=== PATIENT | female | born 1990 | race Caucasian/White ===

== ENCOUNTER 2022-10-07 19:35 | Inpatient (IN) | payer OTHER, SELFPAY ==
[2022-10-07 22:31] VITALS: BMI 26.3
[2022-10-07 22:40] VITALS: BP 105/63; PULSE 68; RESP 18; TEMP 36.6; O2SAT 98
[2022-10-07] MEDS: 0.9% Normal Saline 1,000 ML 125 ML IV (22:43)
--- NOTE | 2022-10-07 23:00 | CON.PCM.GI_ITS ---
HPI Consult Data Date of Consult: 10/07/22 HPI Narrative Reason for Consultation: Choledocholithiasis HPI Narrative: RENATE TREVIZO, is a 31 F who presents?31 F who presents on transfer from [facility] with a diagnosis of choledocholithiasis.? She reportedly had a right upper quadrant ultrasound with choledocholithiasis and an associated dilated common bile duct with persistent cholelithiasis.? She, further, exhibited transaminitis and hyperbilirubinemia.? I was contacted and said that the patient could be transferred to our institution for therapeutic ERCP. She says that she has been having in the right upper quadrant intermittently associated with dark-colored urine for the last several months. Patient states that she started with pain over the weekend after eating.? Therefore she has not eaten much to this point.? She reports that she had this pain once before almost a year ago during the with her son who is now 7 months old.? She continues to breast-feed.? I was notified by nursing earlier today that patient exhibited some hypoglycemia but was asymptomatic. ? Patient apparently had a similar issue at outside facility and was placed on D5 IV fluids but this spiked her blood sugar.? Patient denies any prior awareness of this issue, but does confess that she has had some unexplained sweating lately. [facility] Medical History (Updated 10/08/22 @ 13:[address] Vasquez Medina MD) GERD (gastroesophageal reflux disease) Medical History no medical history Home Medications NK 10/07/22 [History Last Taken Unknown] Allergy/AdvReac Type Severity Reaction Status Date / Time No Known Allergies Allergy Verified 10/07/22 22:38 Social History Smoking Status: Never smoker ROS Review of Systems ROS Unobtainable: other Constitutional Constitutional: Denies fatigue, fever(s), poor appetite, weight gain or weight loss ENT HEENT: Denies mouth lesions Cardiovascular Cardiovascular: Denies abdominal bloating, abdominal edema or abdominal pain Respiratory/Chest Respiratory/Chest: Denies change in mental status, change in phlegm color, chest congestion or chest tightness Gastrointestinal Gastrointestinal: Denies belching, bloating, change in bowel habits, change in stool character, chewing difficulty, coffee ground emesis, constipation, cramping, diarrhea, dyspepsia, dysphagia, early satiety, excessive flatus, fecal incontinence, heartburn, hematemesis, hematochezia, hemorrhoids, loose stools, melena, nausea, odynophagia, rectal bleeding, tenesmus, vomiting or weight changes Genitourinary Genitourinary: Denies abdominal discomfort, burning urination or itching Musculoskeletal Musculoskeletal: Reports as per HPI; Denies muscle weakness or myalgias Integumentary Integumentary: Denies jaundice Neurologic Neurologic: Denies lack of coordination or weakness Psychiatric Psychiatric: Denies confusion, depression, memory loss, mood swings, paranoia or suicidal ideation Endocrine Endocrinology: Denies systems reviewed and no addt'l complaints, except as documented Hematologic/Lymphatic Hematologic/Lymphatic: Denies anemia, easy bleeding, easy bruising or lymphadenopathy Allergic/Immunologic Allergic/Immunologic: Denies systems reviewed and no addt'l complaints, except as documented Physical Exam Const alert, oriented x3 and no apparent distress General Appearance: cooperative Resp normal respiratory effort GI GI Narrative: No scars, nondistended. Soft and nontender to palpation x4 quadrants. Negative Andrade sign. Lab / Micro Data Result Diagrams: 10/08/22 04:10 10/08/22 04:10 Labs: Laboratory Results - last 24 hr 10/08/22 04:10: WBC 5.8, RBC 4.04 L, Hgb 13.2, Hct 38.3, MCV 94.8, MCH 32.7 H, MCHC 34.5, RDW Std Deviation 42.9, RDW Coeff of Travon 12.3, Plt Count 226, MPV 10.2, Immature Gran % (Auto) 0.300, Neut % (Auto) 62.1, Lymph % (Auto) 24.8, [place] % (Auto) 10.7 H, Eos % (Auto) 1.4, Baso % (Auto) 0.7, Absolute Neuts (auto) 3.6, Absolute Lymphs (auto) 1.44, Nucleated RBC % 0 10/08/22 04:10: Sodium 139, Potassium 4.3, Chloride 110 H, Carbon Dioxide 15.0 L , Anion Gap 14, BUN 9, Creatinine 0.77, Estim Creat Clear Calc 90.57, Est GFR (MDRD) Af Amer 112, Est GFR (MDRD) Non-Af 92, BUN/Creatinine Ratio 11.7, Glucose 52 L, Calcium 8.2 L, Phosphorus 3.4, Magnesium 1.6, Total Bilirubin 1.90 H, AST 543 H, ALT 1137 H, Alkaline Phosphatase 189 H, Total Protein 6.7, Albumin 3.1 L, Globulin 3.6, Albumin/Globulin Ratio 0.9 10/08/22 05:23: POC Glucose 48 L 10/08/22 06:37: POC Glucose 62 L 10/08/22 12:19: POC Glucose 55 L 10/08/22 14:50: POC Glucose 69 L 10/08/22 17:17: POC Glucose 59 L Radiology Impression Endo Retro Cholangiopancreatogram 10/08/22 16:40 IMPRESSION: Fluoroscopy provided during an ERCP. Electronically Signed: Pavan Davenport DO at 17:41 EST Reading Location ID and State: [facility] / [place] Tel [phone], Service support , Assessment & Plan Assessment/Plan (1) Choledocholithiasis: PLAN: She will undergo therapeutic and diagnostic ERCP. She was explained alternatives, risk, benefits include not withstanding bleeding, infection, sepsis, perforation, and post ERCP pancreatitis. She will have an ASA of 1. Continue n.p.o. and IV antibiotics along with IV fluids. Charges/Coding Visit Charges Inpatient E&M: 77286 Init Hosp L2
[2022-10-07] MEDS: Acetaminophen 500 MG Tablet PO (23:32)
--- NOTE | 2022-10-07 23:41 | NURSING ---
PT requesting breast pump. pt states she is her 7 month old child. A double breast pump was given; pt and support person educated on pump use, breast milk collection, and cleaning instructions. pt verbalized understanding. WP phone number written on pts white board and encouraged to call if she has questions
[2022-10-08 04:22] LABS: Absolute Lymphocyte Count 1.44 X10^3/uL (0.83-4.51); Absolute Neutrophil Count 3.6 X10^3/uL (2.0-7.7); Basophil# 0.04 X10^3/uL; Basophil% 0.7 % (0-1); Eosinophil# 0.08 X10^3/uL; Eosinophils% 1.4 % (0-5); Hematocrit 38.3 % (37-47); Hemoglobin 13.2 g/dL (12.0-15.0); Lymphocyte # 1.44 X10^3/ul (0.83-4.51); Lymphocyte % 24.8 % (19-41); Mean Corp Hgb Conc 34.5 g/dL (32-36); Mean Corpuscular Hgb 32.7 pg (27.0-32.0); Mean Corpuscular Volume 94.8 fL (81-99); Mean Platelet Vol. 10.2 fl (6.2-12.0); Monocyte# 0.62 X10^3/uL; Monocyte% 10.7 % (0-10); NRBC Flagged by Analyzer 0 % (0-5); Neutrophil # 3.61 X10^3/uL (2.7-7.7); Neutrophil % 62.1 % (47-70); Platelet Count 226 K/mm3 (150-450); RBC Distribution Width CV 12.3 % (11.6-14.6); RBC Distribution Width SD 42.9 fl (35.1-43.9); Red Blood Count 4.04 M/mm3 (4.2-5.4); White Blood Count 5.8 K/mm3 (4.4-11.0)
[2022-10-08 04:40] VITALS: BP 111/56; PULSE 66; RESP 14; TEMP 36.6; O2SAT 100
[2022-10-08 04:58] LABS: ALB/GLOB Ratio 0.9 RATIO (0.9-2.4); AST(SGOT) 543 U/L (15-37); Alanine Aminotransfer ALT/SGPT 1137 U/L (13-56); Albumin, Serum 3.1 g/dL (3.2-5.0); Alkaline Phosphatase 189 U/L (45-117); Anion Gap 14 (5-15); BUN 9 mg/dL (7-18); BUN/Creat Ratio 11.7 RATIO (10-20); Calcium,Total 8.2 mg/dL (8.5-10.1); Chloride 110 mmol/L (98-107); Creatinine, Serum 0.77 mg/dL (0.55-1.02); EST Glomerular Filtration Rate 92 mL/min (>60); Est Glom Filt Rate - Afr Amer 112 mL/min (>60); Estimated Creatinine Clearance 90.57 ml/min; Globulin 3.6 g/dL (2.2-4.2); Glucose 52 mg/dL (74-106); Magnesium 1.6 mg/dL (1.6-2.6); Phosphorus 3.4 mg/dL (2.5-4.9); Potassium 4.3 mmol/L (3.5-5.1); Protein, Total 6.7 g/dL (6.4-8.2); Sodium Level 139 mmol/L (136-145)
[2022-10-08 05:46] LABS: Bedside Glucose 48 mg/dL (74-106)
[2022-10-08] MEDS: 0.9% Normal Saline 1,000 ML 125 ML IV (06:02)
[2022-10-08 07:00] LABS: Bedside Glucose 62 mg/dL (74-106)
[2022-10-08 08:14] VITALS: BP 106/63; PULSE 64; RESP 16; TEMP 36.7; O2SAT 99
[2022-10-08] MEDS: Dextrose 5%/0.9% NaCl 1,000 ML 75 ML IV (08:19)
--- NOTE | 2022-10-08 10:13 | CASEMGMT ---
DREA BARBER Assessment: Face to Face with pt for initial transition planning/care coordination assessment. RN SUNIL introduced self and role at [facility], pt voices understanding and consents to assessment. Pt is A/O x4 and answers all questions appropriately at this time. Pt at bedside. Care providers, pharmacy, and demographics verified/updated. Admitting Dx: choledocholithiasis PCP:Morenita Specialists:Eunice Pina from 's office Preferred Pharmacy: [facility] Insurance: [facility] Prescription Benefit: no LNOK: Gui Hayward, father; River Hayward, Living Arrangements: Pt lives with and 4 children in a two story house with 2 steps to enter. Pt reports she is I in ADL's and denies concerns at home. Transportation: Pt hires drivers for transportation. DME/HHC/SNF: Pt denies having any DME in the home, previous HHC or SNF stays. Pt states no concerns with going home at time of dc. Pt states no further concerns/needs. CM to follow. Advised pt to ask CM if any further question/concerns/needs arise, voices understanding. Pt Goal: Home Plan: Home
[2022-10-08 12:45] LABS: Bedside Glucose 55 mg/dL (74-106)
--- NOTE | 2022-10-08 13:13 | PCM.HP.STD ---
HPI - General General Date of Admission: 10/07/22 Date of Service: 10/08/22 Chief Complaint: Choledocholithiasis HPI Narrative RENATE TREVIZO, is a 31 F who presents [facility] on transfer from [facility] with a diagnosis of choledocholithiasis. She reportedly had a right upper quadrant ultrasound with choledocholithiasis and an associated dilated common bile duct with persistent cholelithiasis. She, further, exhibited transaminitis and hyperbilirubinemia. Gastroenterology was contacted at our hospital and committed to treating the patient. I was then notified of potential transfer and accepted the patient for primary admission. Patient states that she started with pain over the weekend after eating. Therefore she has not eaten much to this point. She reports that she had this pain once before almost a year ago during the with her son who is now 7 months old. She continues to breast-feed. I was notified by nursing earlier today that patient exhibited some hypoglycemia but was asymptomatic. Patient apparently had a similar issue at outside facility and was placed on D5 IV fluids but this spiked her blood sugar. Patient denies any prior awareness of this issue, but does confess that she has had some unexplained sweating lately. [facility] Medical History (Updated 10/08/22 @ 13:[address] Vasquez Medina MD) GERD (gastroesophageal reflux disease) Medical History no medical history Home Medications NK 10/07/22 [History Last Taken Unknown] Allergy/AdvReac Type Severity Reaction Status Date / Time No Known Allergies Allergy Verified 10/07/22 22:38 Social History Smoking Status: Never smoker Vital Signs Vital Signs Vital Signs: 10/07/22 22:40 10/07/22 22:28 10/08/22 04:40 Temperature 97.9 F 97.9 F Temperature Source Oral Oral Pulse Rate 68 66 Respiratory Rate 18 14 Respiratory Effort Normal Respiratory Depth Normal Respiratory Pattern Normal Blood Pressure 105/63 111/56 L Blood Pressure Mean 77 74 Blood Pressure Source Monitor Monitor Blood Pressure Position Semi-Fowlers Semi-Fowlers Blood Pressure Location Right Arm Right Arm Pulse Ox 98 100 Oxygen Delivery Method Room Air Room Air Room Air 10/08/22 08:14 Temperature 98.0 F Temperature Source Oral Pulse Rate 64 Respiratory Rate 16 Respiratory Effort Respiratory Depth Respiratory Pattern Blood Pressure 106/63 Blood Pressure Mean 77 Blood Pressure Source Monitor Blood Pressure Position Semi-Fowlers Blood Pressure Location Right Arm Pulse Ox 99 Oxygen Delivery Method Room Air Weight Weight: 153 lb 3.54 oz Body Mass Index (BMI) 26.3 Physical Exam Const alert, oriented x3 and no apparent distress General Appearance: cooperative Resp normal respiratory effort GI GI Narrative: No scars, nondistended. Soft and nontender to palpation x4 quadrants. Negative Andrade sign. Results Lab / Micro Data Result Diagrams: 10/08/22 04:10 10/08/22 04:10 Labs: Laboratory Results - last 24 hr 10/08/22 04:10: WBC 5.8, RBC 4.04 L, Hgb 13.2, Hct 38.3, MCV 94.8, MCH 32.7 H, MCHC 34.5, RDW Std Deviation 42.9, RDW Coeff of Travon 12.3, Plt Count 226, MPV 10.2, Immature Gran % (Auto) 0.300, Neut % (Auto) 62.1, Lymph % (Auto) 24.8, [place] % (Auto) 10.7 H, Eos % (Auto) 1.4, Baso % (Auto) 0.7, Absolute Neuts (auto) 3.6, Absolute Lymphs (auto) 1.44, Nucleated RBC % 0 10/08/22 04:10: Sodium 139, Potassium 4.3, Chloride 110 H, Carbon Dioxide 15.0 L, Anion Gap 14, BUN 9, Creatinine 0.77, Estim Creat Clear Calc 90.57, Est GFR (MDRD) Af Amer 112, Est GFR (MDRD) Non-Af 92, BUN/Creatinine Ratio 11.7, Glucose 52 L, Calcium 8.2 L, Phosphorus 3.4, Magnesium 1.6, Total Bilirubin 1.90 H, AST 543 H, ALT 1137 H, Alkaline Phosphatase 189 H, Total Protein 6.7, Albumin 3.1 L, Globulin 3.6, Albumin/Globulin Ratio 0.9 10/08/22 05:23: POC Glucose 48 L 10/08/22 06:37: POC Glucose 62 L 10/08/22 12:19: POC Glucose 55 L Assessment & Plan Assessment/Plan (1) Choledocholithiasis: PLAN: Patient is a 31-year-old female who presents for treatment of choledocholithiasis diagnosed at an outside facility. Patient's laboratory certainly accord at this diagnosis, but I have not been yet able to see outside ultrasound imaging. Laboratories repeated here are also concordant with this diagnosis. Fortunately, by exam, patient does not appear to have concurrent cholecystitis. Gastroenterology has been formally consulted for ERCP. I discussed with patient that we will plan for laparoscopic cholecystectomy following ERCP?likely tomorrow. The procedure was described in detail and all questions were taken from her and her . Neuro: As needed Dilaudid, as needed Pulm/CV: No current issues FEN/GI: Daily laboratories, n.p.o. in anticipation of procedure, trend abdominal exam : No current issues Heme/ID: Trend CBC, empiric Zosyn coverage Endo: Bedside glucose checks, D5 infusion rate increased to 100 mL/h given persistent, asymptomatic hypoglycemia Proph: SCDs, patient encouraged Dispo: Continue inpatient care (2) Hypoglycemia: PLAN: Patient with asymptomatic hypoglycemia ranging in blood sugar from 40s to 50s while NPO. Slowly titrating up rate of D5 NS to help with this issue. Likely owing to concurrent breast-feeding and caloric output. Will monitor closely once patient is able to return to a diet. Charges/Coding Visit Charges Inpatient E&M: 40920 Init Hosp L2
--- NOTE | 2022-10-08 13:32 | NURSING ---
MEDICAL RECORDS FROM [facility] SENT TO MEDICAL RECORDS TO BE SCANNED
--- NOTE | 2022-10-08 14:53 | NURSING ---
Called to AC to report BGT issues/treatments, and that pt has been pumping periodically.
[2022-10-08 15:11] LABS: Bedside Glucose 69 mg/dL (74-106)
--- NOTE | 2022-10-08 16:40 | RAD_ITS ---
CLINICAL HISTORY: Female, 31 years old. ERCP. PROCEDURE: ERCP. FLUOROSCOPY TIME (if supplied): Not provided. TECHNIQUE: Fluoroscopic guidance was provided during an ERCP. 9 procedure images were presented for interpretation The initial image demonstrates an endoscope in the duodenum. There is cannulization of the CBD with injection of contrast. No evidence of filling defect stricture or dilatation. Balloon sweeping of this CBD was performed. No filling defect is seen on the final image. Please refer to the operative report for further details. RAD/ERCP Biliary/Pancreas IMPRESSION: Fluoroscopy provided during an ERCP. Electronically Signed: Pavan Davenport DO at 17:41 EST ,
--- NOTE | 2022-10-08 17:06 | OP.ERCP_ITS ---
Patient Name: Katherine Hayward Procedure Date: 10/08/2022 4:24 PM Date of : 1990 Age: 31 Procedure: ERCP Indications: Common bile duct stone(s) Providers: Narendra Mohamud DO Medicines: General Anesthesia Patient Profile: This is a 31 year old female. Refer to note in patient chart for documentation of history and physical. Patient has symptoms of acute right upper quadrant abdominal pain and acute jaundice. Complications: No immediate complications. Procedure: Pre-Anesthesia Assessment: - Prior to the procedure, a History and Physical was performed, and patient medications and allergies were reviewed. The patient is competent. The risks and benefits of the procedure and the sedation options and risks were discussed with the patient. All questions were answered and informed consent was obtained. Patient identification and proposed procedure were verified in the pre-procedure area. Mental Status Examination: alert and oriented. Airway Examination: normal oropharyngeal airway and neck mobility. Respiratory Examination: clear to auscultation. CV Examination: normal. Prophylactic Antibiotics: The patient does not require prophylactic antibiotics. Prior Anticoagulants: The patient has taken no previous anticoagulant or antiplatelet agents. ASA Grade Assessment: II - A patient with mild systemic disease. After reviewing the risks and benefits, the patient was deemed in satisfactory condition to undergo the procedure. The anesthesia plan was to use general anesthesia. Immediately prior to administration of medications, the patient was re-assessed for adequacy to receive sedatives. The heart rate, respiratory rate, oxygen saturations, blood pressure, adequacy of pulmonary ventilation, and response to care were monitored throughout the procedure. The physical status of the patient was re-assessed after the procedure. After obtaining informed consent, the scope was passed under direct vision. Throughout the procedure, the patient's blood pressure, pulse, and oxygen saturations were monitored continuously. The Duodenoscope was introduced through the mouth, and advanced to the duodenum and used for direct visualization of the bile duct. The ERCP was accomplished without difficulty. The patient tolerated the procedure well. Scope In: 4:40:02 PM Scope Out: 4:53:07 PM Total Procedure Duration Time 0 hours 13 minutes 5 seconds Findings: The business risk analyst film was normal. The esophagus was successfully intubated under direct vision. The scope was advanced to a normal major papilla in the descending duodenum without detailed examination of the pharynx, larynx and associated structures, and upper GI tract. The upper GI tract was grossly normal. The upper GI tract was traversed under direct vision without detailed examination. The major papilla was normal. The major papilla was normal. The minor papilla was not found. The bile duct was deeply cannulated. Contrast was injected. I personally interpreted the bile duct images. There was brisk flow of contrast through the ducts. Image quality was excellent. Contrast extended to the entire biliary tree. Opacification of the entire biliary tree except for the cystic duct and gallbladder and lower third of the main bile duct was successful. The maximum diameter of the ducts was 8 mm. The lower third of the main bile duct contained one stone, which was 6 mm in diameter. The main bile duct was moderately dilated, with a stone causing an obstruction. The largest diameter was 9 mm. A straight Roadrunner wire was passed into the biliary tree. A 5 mm biliary sphincterotomy was made with a traction (standard) sphincterotome using ERBE electrocautery. There was no post-sphincterotomy bleeding. The biliary tree was swept with a 15 mm balloon starting at the bifurcation. Sludge was swept from the duct. All stones were removed. The lower third of the main bile duct was successfully dilated with a 6-7-8 mm balloon (to a maximum balloon size of 8 mm) dilator. One 10 Fr by 5 cm stent was placed 5 cm into the common bile duct. Bile flowed through the stent. The stent was in good position. Impression: - The major papilla appeared normal. - The entire main bile duct was moderately dilated, with a stone causing an obstruction. - Choledocholithiasis was found. Complete removal was accomplished by biliary sphincterotomy and balloon extraction. - A biliary sphincterotomy was performed. - The biliary tree was swept. - The lower third of the main bile duct was successfully dilated. - One stent was placed into the common bile duct. Procedure Code(s): --- Professional --- 35648, Endoscopic retrograde cholangiopancreatography (ERCP); with placement of endoscopic stent into biliary or pancreatic duct, including pre- and post-dilation and guide wire passage, when performed, including sphincterotomy, when performed, each stent 87844, Endoscopic retrograde cholangiopancreatography (ERCP); with removal of calculi/debris from biliary/pancreatic duct(s) 80091, 26, Endoscopic catheterization of the biliary ductal system, radiological supervision and interpretation CPT copyright 2017 [employer]. All rights reserved. The codes documented in this report are preliminary and upon color checker roving or yarn review may be revised to meet current compliance requirements. Narendra Mohamud DO 10/08/2022 5:06:08 PM This report has been signed electronically. Number of Addenda: 0 Note Initiated On: 10/08/2022 4:24 PM
--- NOTE | 2022-10-08 17:07 | OP.CCLET_ITS ---
10/08/2022 Conner Spaulding [address] [place] [address] Re : ERCP procedure for Katherine Hayward Dear Dr. Spaulding This procedure was performed on September. My impressions and recommendations are as follows: Impressions : - The major papilla appeared normal. - The entire main bile duct was moderately dilated, with a stone causing an obstruction. - Choledocholithiasis was found. Complete removal was accomplished by biliary sphincterotomy and balloon extraction. - A biliary sphincterotomy was performed. - The biliary tree was swept. - The lower third of the main bile duct was successfully dilated. - One stent was placed into the common bile duct. Recommendations : My findings are described in the full procedure note, which is enclosed. If I can be of further assistance, please feel free to contact me at . Sincerely, Narendra Mohamud, DO 10/08/2022 5:06:08 PM This report has been signed electronically.
[2022-10-08 17:16] VITALS: BP 106/63; BP 114/72; PULSE 82; RESP 16; TEMP 36.3; O2SAT 100
[2022-10-08 17:30] VITALS: BP 103/63; BP 106/63; PULSE 83; RESP 16; TEMP 36.7; O2SAT 100
[2022-10-08 17:36] LABS: Bedside Glucose 59 mg/dL (74-106)
[2022-10-08 18:02] VITALS: BP 114/73; PULSE 52; RESP 16; TEMP 36.7; O2SAT 99
[2022-10-08 21:11] VITALS: BP 116/73; PULSE 63; RESP 18; TEMP 36.5; O2SAT 98
[2022-10-08] MEDS: Dextrose 5%/0.9% NaCl 1,000 ML 100 ML IV (21:50)
[2022-10-08 23:36] LABS: Bedside Glucose 124 mg/dL (74-106)
[2022-10-09] VITALS (13 sets, daily range): BP systolic 105–128; BP diastolic 61–82; PULSE 56–107; RESP 12–18; TEMP 36.4–37.2; O2SAT 18–100
--- NOTE | 2022-10-09 | GALL_PTH ---
PATIENT: RENATE TREVIZO LOC: MS2 U#:[id number] AGE/SX: 31/F ROOM: [facility] RE10/07/[address]: Dr. Vasquez Medina MD : 1990 BED: 1 DIS: 10/10/2022 SPEC #: [id number] RECD: 10/09/22 16:57 STATUS: ODALIS TIDWELL #: [id number] ANAHI: 10/09/22 00:[address]: Vasquez Medina DEPT: SURGICAL PATHOLOGY RECD BY: Julio Rodríguez ENTERED: 10/12/22 11:23 SP TYPE: VIN WINN DR: MD Dr. Narendra Wilhelm DO Tissues: Gallbladder, NOS Procedures: Surgery Specimen Level III HEADER OPERATION: Laparoscopic cholecystectomy with IOC PRE-OP DIAGNOSIS: Choledocholithiasis TISSUE SUBMITTED: Gallbladder MICROSCOPIC DIAGNOSIS Gallbladder, cholecystectomy: Chronic cholecystitis and cholelithiasis. AM:kristyn 10/13/2022 MICROSCOPIC DESCRIPTION Slides are reviewed. GROSS DESCRIPTION Received is one container labeled with the patient's name and designated gallbladder. The specimen consists of a gallbladder measuring 6.5 cm in length and up to 2.5 cm in diameter. The external surface is pink-kaiser, smooth and glistening for the most part. Focally it is granular, hemorrhagic and contains cautery artifact. The gallbladder contains green-yellow thick mucoid bile and one irregular brown stone measuring 0.4 cm in greatest dimension. The mucosa is bile-stained and without any mass lesions. The gallbladder wall measures up to 0.5 cm in thickness. School Health Aide sections from the gallbladder and the cystic duct are submitted in one cassette. / SJ:kristyn 10/12/2022 TC:3 CPT: 72577
[2022-10-09 02:09] LABS: Internal QC Validated? YES +Cl - CLEAR BKGD; Pregnancy, Urine Negative Negative
[2022-10-09] MEDS: Dextrose 5%/0.9% NaCl 1,000 ML 100 ML IV ×2 (04:29→18:40)
[2022-10-09 05:16] LABS: Bedside Glucose 186 mg/dL (74-106)
--- NOTE | 2022-10-09 05:30 | EKG12_ITS ---
Test Reason : AM EKG Blood Pressure : / mmHG Vent. Rate : 056 BPM Atrial Rate : 056 BPM P-R Int : 126 ms QRS Dur : 102 ms QT Int : 462 ms P-R-T Axes : 054 052 043 degrees QTc Int : 445 ms Sinus bradycardia with sinus arrhythmia Otherwise normal ECG Confirmed by LYNN BRAGG, KEKE ([id number]), senior editor HERRERA EMANUEL ([id number]) on 10/14/2022 10:15:18 AM Referred By: LOUANN Confirmed By:KEKE BAILEY MD
--- NOTE | 2022-10-09 07:00 | PCM.PROGNOTE ---
Subjective Subjective Patient underwent a ERCP with stone removal and stent placement yesterday. She is scheduled for elective cholecystectomy today. Objective Data Objective Data Vital Signs: Vital Signs Temp Pulse Resp BP Pulse Ox O2 Del Method 97.9 F 68 14 109/70 99 Room Air 10/09/22 09:48 10/09/22 09:48 10/09/22 09:48 10/09/22 09:48 10/09/22 09:48 10/09/22 10:00 Oxygen Delivery Method Room Air Weight: 153 lb 3.54 oz Body Mass Index (BMI) 26.3 Intake & Output: Intake and Output for Last 24 Hours 10/07/22 10/08/22 10/09/22 23:59 23:59 23:59 Intake Total 3512.50 / 3512.50 765 / 765 Balance 3512.50 / 3512.50 765 / 765 Lab / Micro Data Result Diagrams: 10/08/22 04:10 10/08/22 04:10 Labs: Laboratory Results - last 24 hr 10/08/22 14:50: POC Glucose 69 L 10/08/22 17:17: POC Glucose 59 L 10/08/22 21:58: POC Glucose 124 H 10/09/22 01:50: Urine Test Negative 10/09/22 04:25: POC Glucose 186 H Radiography Diagnostic Testing: Radiology Impression Endo Retro Cholangiopancreatogram 10/08/22 16:40 IMPRESSION: Fluoroscopy provided during an ERCP. Electronically Signed: Pavan Davenport DO at 17:41 EST Reading Location ID and State: [address] [place] [address] Tel [phone], Service support , Physical Exam Const alert, oriented x3 and no apparent distress General Appearance: cooperative Resp normal respiratory effort GI GI Narrative: No scars, nondistended. Soft and nontender to palpation x4 quadrants. Negative Andrade sign. Assessment & Plan Assessment/Plan (1) Choledocholithiasis: PLAN: Status post removal of choledocholithiasis. Status post stent placement, bile duct. She is not have any abdominal pain, cramping or nausea. She is scheduled for cholecystectomy today. We will continue to follow. Charges/Coding Visit Charges Inpatient E&M: 63425 Subs Hosp L2
--- NOTE | 2022-10-09 14:36 | PCM.PN.SRG ---
Subjective Subjective Patient seen and examined. She reports that she is feeling well. She has no complaints out of yesterday's ERCP procedure. She wishes to know a few details about today's planned procedure. Objective Data Objective Data Vital Signs: Vital Signs Temp Pulse Resp BP Pulse Ox O2 Del Method 97.6 F L 70 18 105/66 100 Room Air 10/09/22 13:47 10/09/22 13:47 10/09/22 13:47 10/09/22 13:47 10/09/22 13:47 10/09/22 13:47 Oxygen Delivery Method Room Air Weight: 153 lb 3.54 oz Body Mass Index (BMI) 26.3 Intake & Output: Intake and Output for Last 24 Hours 10/07/22 10/08/22 10/09/22 23:59 23:59 23:59 Intake Total 3512.50 / 3512.50 765 / 765 Balance 3512.50 / 3512.50 765 / 765 Lab / Micro Data Result Diagrams: 10/08/22 04:10 10/08/22 04:10 Labs: Laboratory Results - last 24 hr 10/08/22 14:50: POC Glucose 69 L 10/08/22 17:17: POC Glucose 59 L 10/08/22 21:58: POC Glucose 124 H 10/09/22 01:50: Urine Test Negative 10/09/22 04:25: POC Glucose 186 H Radiography Diagnostic Testing: Radiology Impression Endo Retro Cholangiopancreatogram 10/08/22 16:40 IMPRESSION: Fluoroscopy provided during an ERCP. Electronically Signed: Pavan Davenport DO at 17:41 EST Reading Location ID and State: [facility] / MD Tel [phone], Service support , Physical Exam Const oriented x3 and no apparent distress Resp normal respiratory effort GI GI Narrative: Nondistended, soft, nontender to palpation. Negative Andrade sign Assessment & Plan Assessment/Plan (1) Choledocholithiasis: PLAN: Patient is a 31-year-old female who presents for treatment of choledocholithiasis diagnosed at an outside facility. Patient now status post ERCP with stone extraction and stent placement by GI yesterday. Plan to proceed to the OR for laparoscopic cholecystectomy with intraoperative cholangiogram now. Neuro: As needed Dilaudid, as needed acetaminophen Pulm/CV: No current issues FEN/GI: Daily laboratories, n.p.o. in anticipation of procedure, trend abdominal exam : No current issues Heme/ID: Trend CBC, empiric Zosyn coverage Endo: Bedside glucose checks, D5 infusion rate increased to 100 mL/h given persistent, asymptomatic hypoglycemia Proph: SCDs, patient encouraged Dispo: Continue inpatient care (2) Hypoglycemia: PLAN: Patient now exhibiting some hyperglycemia following a hypoglycemic episode yesterday. We will look to transition to a diet immediately following procedure to help smooth out some of these swings. We will investigate whether patient has primary care provider establish follow-up shortly after hospital discharge. Charges/Coding Visit Charges Inpatient E&M: 30224 Subs Hosp L2
[2022-10-09] MEDS: Lactated Ringers 1,000 ML 15 ML IV (14:50)
[2022-10-09 15:10] LABS: Bedside Glucose 90 mg/dL (74-106)
--- NOTE | 2022-10-09 15:20 | RAD_ITS ---
CLINICAL HISTORY: Female, 31 years old. Pain. PROCEDURE: CHOLANGIOGRAM - intraoperative FLUOROSCOPY TIME (if supplied): 22.7 seconds. Cumulative dose of 5.34 mGy. TECHNIQUE: Fluoroscopic guidance was provided in the OR during the performance of an intraoperative cholangiogram. There is evidence of a biliary stent. Contrast is seen on the initial study within the cystic duct and proximal CBD. Subsequent images demonstrate passage of contrast into the duodenum now upward into the intrahepatic ducts. There is dilatation of the distal common hepatic duct with an abrupt line with termination. The intrahepatic ducts appear narrowed and incompletely opacified. There is free spillage into the duodenum. No visualized filling defects. Please refer to the operative report for further details. RAD/Cholangiogram/ O R,Initial IMPRESSION: Fluoroscopic guidance provided in the wire during an intraoperative cholangiogram. Electronically Signed: Pavan Davenport DO at 16:08 [facility] ,
[2022-10-09 15:35] LABS: Bedside Glucose 71 mg/dL (74-106)
[2022-10-09] MEDS: Bupiv/Epi 0.5% Mpf 30 ML Vial (15:58)
--- NOTE | 2022-10-09 15:59 | PCM.OPRPT ---
Report of Operation Date of Procedure: 10/09/22 Pre-Operative Diagnosis: Choledocholithiasis status post ERCP with stone extraction Post-Operative Diagnosis: 1. Choledocholithiasis status post ERCP with stone extraction 2. Mild cholecystitis 3. Small umbilical hernia Surgery/Procedure Performed:: 1. Laparoscopic cholecystectomy with intraoperative cholangiogram 2. Primary repair of umbilical hernia Description of Surgical Findings:: ? Mild inflammation of the gallbladder with thin adhesions to the gallbladder ? Normal intraoperative cholangiogram with rapid filling of the duodenum antegrade and slower retrograde filling of the common hepatic duct without filling defect Surgeon: Vasquez Medina industrial furnace fabricator: Florencia Tovar Type of Anesthesia: General/Supplemental Anesthesiologist: Javier Rain Specimen's removed: Gallbladder Drains: None Estimated Blood Loss (mL): 10 Description of Procedure: After proper identification in the preoperative holding area the patient was brought to the operating room where she was positioned supine on the operating room table. Preoperatively SCDs had been placed and antibiotics had been administered on the floor. General anesthesia was then induced. Patient's abdomen was prepped and draped in usual sterile fashion. A formal timeout was conducted to confirm both patient and the procedure. Procedure was begun with a supraumbilical incision which was extended deeply down to the level of the fascia. The fascia was elevated and incised, as well as the peritoneum. A finger sweep was performed to ensure there were no underlying adhesions and a 12 mm balloon trocar was inserted. Pneumoperitoneum was established at 15 mmHg. 3 additional trocars were placed in the epigastrium and in the right upper quadrant (3 x 5 mm). Inspection of the peritoneum revealed no inadvertent injury to the viscera below. The gallbladder was visualized with minimal inflammation and thin adhesions to the underlying omentum. These were taken down bluntly and with the use of electrocautery. The gallbladder fundus was then grasped and elevated cephalad. Then, using careful dissection the peritoneum was opened and the structures of the hepatocystic triangle were delineated. Once the critical view of safety was obtained, the cystic duct was singly clipped and a ductotomy was created in the cystic duct. Using an Reddy Kingston clamp, a cholangiocatheter was fed into the proximal segment of the cystic duct and clamped into place. Under fluoroscopy a cholangiogram was then obtained showing a normal length cystic duct flowing into a common bile duct with unobstructed/rapid antegrade flow of contrast into the duodenum. More slowly to fill, there was also retrograde flow through the common hepatic duct into the right and left hepatic ducts. Satisfied with this result, the cholangiocatheter was withdrawn and the cystic duct was triply clipped and sharply divided. The same process was used for the cystic artery. The gallbladder was then removed from the gallbladder fossa with the use of electrocautery. The gallbladder was placed in an Endo Catch bag and removed from the peritoneum. Morison's pouch was irrigated and the effluent was suctioned free of the peritoneum. Hemostasis was again confirmed. Pneumoperitoneum was evacuated and the fascia of the 12 mm supraumbilical port site was closed with #1Vicryl in a [id number] fashion. As I was closing the fascia, I noticed a small umbilical hernia present just 1.5 cm inferiorly. Not wanting to compromise our closure with leaving this hernia and trying to do the best thing for the patient (by minimizing need for another anesthetic) I elected to close this hernia as well. I dissected around the umbilical stalk and the overlying skin from the deeper fascial layer. The 1 cm fascial defect from the hernia was closed in a [id number] fashion with the #1 Vicryl suture. I then used a 4-0 Monocryl to tack the umbilical skin to the underlying fascial closure. A total of 30 mL of anesthetic was injected at the port sites for postoperative pain control. The skin of each port site was then closed in subcuticular fashion using 4-0 Monocryl. Steri-Strips and bandages were applied as dressings. Patient tolerated the procedure well without any apparent complications. On emergence from their anesthetic the patient was taken to PACU for ongoing recovery. Grafts/Implants Used: None Complications None Admit VTE Documentation VTE Mechan Device Prophylaxis: SCD's
--- NOTE | 2022-10-09 16:48 | DCINST_ITS ---
Discharge Instructions Diet Discharge Diet: No restrictions Activity Discharge Activity: May Not Drive (May not drive while taking narcotic pain medications) and May Shower (May begin showering 48hours postop. Please avoid baths or submerging surgical incisions before skin is completely healed.) May shower in (days): 2 May resume sexual activity in: 2 weeks Ice area for (Minutes): 20 Lifting Restrictions: Limit lifting to <10lbs for 2 weeks following surgery Dressing / Incision Call your doctor if your incision/area has: Sudden Increased Bleeding, Increased Pain/ Swelling, Increased Redness, Foul Smelling Discharge and Swelling at the incision site Call your doctor if you observe: Fever of 101 or Higher, Inability to urinate, Inability to have a bowel movement and Uncontrolled pain Suture Line Care: Avoid Pulling/Pushing Remove Dressing in: 2 days (Please leave steri strips (medical tape) in place until they fall off spontaneously or are removed at your follow-up appointment) Cleanse incision/area with: Keep Dressing Clean & Dry Follow Up Care Please Follow Up With: Vasquez Medina MD When: 1 week postop Test Results: Test results from this visit will be discussed in further detail at your follow- up appointment, if applicable. Discharge Plan Admission Admit Date/Time: 10/07/22 19:35 Primary Reason for Your Visit: Choledocholithiasis Attending Provider: Vasquez Medina Primary Care Provider: Conner Spaulding Consulting Providers: Narendra Mohamud Instructions Patient Instructions: After Gallbladder Surgery Discharge Orders/Prescriptions Prescriptions: New oxycodone 5 mg tablet 5 mg PO Q6H PRN (Reason: pain) 3 Days Qty: 14 0RF Referrals / Follow Up: Conner Spaulding MD [Primary Care Provider] - Disposition Disposition (needs filled in before D/C Order can be placed): Home, Self Care
--- NOTE | 2022-10-09 16:52 | PCM.DC.SUM ---
Providers Date of Admission: 10/07/22 Primary Care Physician: Dr. Conner Spaulding MD Consultations 10/07/22 19:35 Consult: Gastroenterology Routine Consulting Provider: Narendra Mohamud Reason for Consult: Choledocholithiasis EMERGENT Consult: No MD Notified: Yes Date Notified: 10/07/22 Time Notified: 19:36 Method of Notification: ED Physician Initiated Reason For Visit: CHOLEDOCHOLITHIASIS Diagnosis Discharge Diagnosis (1) Choledocholithiasis: Status: Acute Code(s): K80.50 - Calculus of bile duct without cholangitis or cholecystitis without obstruction Plan: Patient is a 31-year-old female who presents for treatment of choledocholithiasis diagnosed at an outside facility. Patient now status post ERCP with stone extraction and stent placement by GI yesterday. Plan to proceed to the OR for laparoscopic cholecystectomy with intraoperative cholangiogram now. Neuro: As needed Dilaudid, as needed acetaminophen Pulm/CV: No current issues FEN/GI: Daily laboratories, n.p.o. in anticipation of procedure, trend abdominal exam : No current issues Heme/ID: Trend CBC, empiric Zosyn coverage Endo: Bedside glucose checks, D5 infusion rate increased to 100 mL/h given persistent, asymptomatic hypoglycemia Proph: SCDs, patient encouraged Dispo: Continue inpatient care (2) Hypoglycemia: Status: Acute Code(s): E16.2 - Hypoglycemia, unspecified Plan: Patient now exhibiting some hyperglycemia following a hypoglycemic episode yesterday. We will look to transition to a diet immediately following procedure to help smooth out some of these swings. We will investigate whether patient has primary care provider establish follow-up shortly after hospital discharge. Medications at Discharge Home Medications oxycodone 5 mg tablet 5 mg PO Q6H PRN pain 3 days #14 tabs 10/09/22 Hospital Course Operations cholecystecomy Procedures - (ERCP 10/08/2022) Summary of Care Provided Minutes Spent on Discharge: 10 Hospital Course: Patient is a 31-year-old female who was diagnosed with choledocholithiasis at [facility] on 10/07/2022. Given her diagnosis, she was transferred to [facility] for gastroenterology services and ERCP. She was thus admitted the evening of 10/07/2022 to this facility and IV antibiotics were initiated immediately. ERCP with stone extraction was undertaken on 10/08/2022 without complication. Patient was then prepared for laparoscopic cholecystectomy with intraoperative cholangiogram which was undertaken in uncomplicated fashion on 10/09/2022. Postoperatively patient diet was advanced and she tolerated this without issue. She was thus discharged home on 10/10/2022 with instructions for follow-up as well as postoperative restrictions. Weight / BMI Weight Weight: 153 lb 3.54 oz Body Mass Index (BMI) 26.3 ABG / Lab / Microbiology Data Result Diagrams: 10/08/22 04:10 10/08/22 04:10 Laboratory: Laboratory Results - last 24 hr 10/08/22 17:17: POC Glucose 59 L 10/08/22 21:58: POC Glucose 124 H 10/09/22 01:50: Urine Test Negative 10/09/22 04:25: POC Glucose 186 H 10/09/22 13:54: POC Glucose 90 10/09/22 15:08: POC Glucose 71 L Radiography Diagnostic Testing: Radiology Impression Endo Retro Cholangiopancreatogram 10/08/22 16:40 IMPRESSION: Fluoroscopy provided during an ERCP. Electronically Signed: Pavan Davenport DO at 17:41 EST Reading Location [facility] Tel [phone], Service support , Cholangiogram 10/09/22 15:20 IMPRESSION: Fluoroscopic guidance provided in the wire during an intraoperative cholangiogram. Electronically Signed: Pavan Davenport DO at 16:08 EST Reading Location ID and State: [employer] [facility] Tel [phone], Service support , D/C Instructions Discharge Diet: No restrictions May shower in (days): 2 May resume sexual activity in: 2 weeks Ice area for (Minutes): 20 Call your doctor if your incision/area has: Sudden Increased Bleeding, Increased Pain/ Swelling, Increased Redness, Foul Smelling Discharge and Swelling at the incision site Call your doctor if you observe: Fever of 101 or Higher, Inability to urinate, Inability to have a bowel movement and Uncontrolled pain Suture Line Care: Avoid Pulling/Pushing Cleanse incision/area with: Keep Dressing Clean & Dry Please Follow Up With: Vasquez Medina MD When: 1 week postop Meaningful Use Info Meaningful Use Diagnoses (Choose all that apply): None applicable Discharge Plan Admission Admit Date/Time: 10/07/22 19:35 Primary Reason for Your Visit: Choledocholithiasis Attending Provider: Vasquez Medina Primary Care Provider: Conner Spaulding Consulting Providers: Narendra Mohamud Instructions Patient Instructions: After Gallbladder Surgery Discharge Orders/Prescriptions Prescriptions: New oxycodone 5 mg tablet 5 mg PO Q6H PRN (Reason: pain) 3 Days Qty: 14 0RF Referrals / Follow Up: Conner Spaulding MD [Primary Care Provider] - Disposition Disposition (needs filled in before D/C Order can be placed): Home, Self Care
[2022-10-09] MEDS: Ibuprofen 400 MG Tablet PO (18:40)
[2022-10-09 22:01] LABS: Bedside Glucose 240 mg/dL (74-106)
[2022-10-09] MEDS: Acetaminophen 500 MG Tablet PO (23:55)
[2022-10-10 00:15] LABS: Bedside Glucose 239 mg/dL (74-106)
[2022-10-10 03:54] VITALS: BP 115/70; PULSE 58; RESP 18; TEMP 36.9; O2SAT 100
--- NOTE | 2022-10-10 05:16 | NURSING ---
IVF fluids D5NS paused overnight d/t hyperglycemia, BGs were monitored. see MAR
[2022-10-10 07:01] LABS: Bedside Glucose 112 mg/dL (74-106)
[2022-10-10 07:01] LABS: Bedside Glucose 147 mg/dL (74-106)
[2022-10-10] MEDS: Ibuprofen 400 MG Tablet PO (09:07)
[2022-10-10 09:15] VITALS: BP 114/70; PULSE 72; RESP 15; TEMP 36.3; O2SAT 98
== END 2022-10-10 12:23 | disposition home or self-care (01) | DRG 419 ==
PROVIDERS: Anesthesiology; Internal Medicine Gastroenterology; Admitting Provider Surgery; PCP Family Medicine; Visit Provider Surgery
PROC: 0FC98ZZ Extirpation of Matter from Common Bile Duct, Via Natural or Artificial Opening Endoscopic (ICD-10-PCS; CPT 43260; principal; 2022-10-08 15:40)
PROC: 0FT44ZZ Resection of Gallbladder, Percutaneous Endoscopic Approach (ICD-10-PCS; CPT 47610; principal; 2022-10-09 15:40)
DX: K80.67 Calculus of gallbladder and bile duct with acute and chronic cholecystitis with obstruction (principal); E16.2 Hypoglycemia, unspecified; K82.8 Other specified diseases of gallbladder; K42.9 Umbilical hernia without obstruction or gangrene
CPT/HCPCS: 36415; 74300; 74330; 76000; 80053; 81025; 82962; 83735; 84100; 85025; 88304; 93005; J7030; J7120; J2405

== ENCOUNTER 2022-12-29 13:29 | Day surgery (SDC) | payer SELFPAY, OTHER ==
[2022-12-29] VITALS (7 sets, daily range): BP systolic 115–124; BP diastolic 71–81; PULSE 71–111; RESP 16–18; TEMP 36.7–37; O2SAT 100; BMI 28.3
--- NOTE | 2022-12-29 13:51 | PCM.HP.BLA ---
History and Physical Date of Admission: 12/29/22 Patient presents for her first postoperative visit following laparoscopic cholecystectomy with intraoperative cholangiogram and primary repair of umbilical hernia on 10/09/2022.? Patient states that she has done well in her postoperative recovery. She denies any significant postoperative discomfort, but states every once in a while she will have some indigestion.? She states that her incisions itch but otherwise feel good.? She does not have any Well[employer] healing concerns.? She reports that her diet is back to normal and her bowel movements are good.? During her hospital admission patient had issues with fluctuating glucose levels, but denies any feelings of flushing or sweating.? She also has confesses that she has not reported this to her primary care provider. [facility] Medical History?(Updated 10/08/22 @ 13:[address] Vasquez Medina MD) GERD (gastroesophageal reflux disease) Medical History ? no medical history? Home Medications NK? 10/07/22 [History Last Taken Unknown] Allergy/AdvReac Type Severity Reaction Status Date / Time No Known Allergies Allergy ? ? Verified 10/07/22 22:38 Social History Smoking Status:? Never smoker Vital Signs Vital Signs Vital Signs: ? 10/07/22 22:40 10/07/22 22:28 10/08/22 04:40 Temperature 97.9 F ? 97.9 F Temperature Source Oral ? Oral Pulse Rate 68 ? 66 Respiratory Rate 18 ? 14 Respiratory Effort ? Normal ? Respiratory Depth ? Normal ? Respiratory Pattern ? Normal ? Blood Pressure 105/63 ? 111/56 L Blood Pressure Mean 77 ? 74 Blood Pressure Source Monitor ? Monitor Blood Pressure Position Semi-Fowlers ? Semi-Fowlers Blood Pressure Location Right Arm ? Right Arm Pulse Ox 98 ? 100 Oxygen Delivery Method Room Air Room Air Room Air ? 10/08/22 08:14 Temperature 98.0 F Temperature Source Oral Pulse Rate 64 Respiratory Rate 16 Respiratory Effort ? Respiratory Depth ? Respiratory Pattern ? Blood Pressure 106/63 Blood Pressure Mean 77 Blood Pressure Source Monitor Blood Pressure Position Semi-Fowlers Blood Pressure Location Right Arm Pulse Ox 99 Oxygen Delivery Method Room Air Weight Weight: ? 153 lb 3.54 oz? Body Mass Index (BMI) ? 26.3? Physical Exam Const alert, oriented x3 and no apparent distress General Appearance: cooperative Resp normal respiratory effort GI GI Narrative: No scars, nondistended.? Soft and nontender to palpation x4 quadrants.? Negative Andrade sign. Results Lab / Micro Data Result Diagrams: 10/08/22 04:10? 10/08/22 04:10? Labs: Laboratory Results - last 24 hr 10/08/22 04:10:?WBC 5.8,?RBC 4.04 L, Hgb 13.2, Hct 38.3, MCV 94.8,?MCH 32.7 H, MCHC 34.5, RDW Std Deviation 42.9, RDW Coeff of Travon 12.3, Plt Count 226, MPV 10.2, Immature Gran % (Auto) 0.300, Neut % (Auto) 62.1, Lymph % (Auto) 24.8,?Linn % (Auto) 10.7 H, Eos % (Auto) 1.4, Baso % (Auto) 0.7, Absolute Neuts (auto) 3.6, Absolute Lymphs (auto) 1.44, Nucleated RBC % 0 10/08/22 04:10:?Sodium 139, Potassium 4.3,?Chloride 110 H,?Carbon Dioxide 15.0 L, Anion Gap 14, BUN 9, Creatinine 0.77, Estim Creat Clear Calc 90.57, Est GFR (MDRD) Af Amer 112, Est GFR (MDRD) Non-Af 92, BUN/Creatinine Ratio 11.7,?Glucose 52 L,?Calcium 8.2 L, Phosphorus 3.4, Magnesium 1.6,?Total Bilirubin 1.90 H,?AST 543 H,?ALT 1137 H,?Alkaline Phosphatase 189 H, Total Protein 6.7,?Albumin 3.1 L, Globulin 3.6, Albumin/Globulin Ratio 0.9 10/08/22 05:23: POC Glucose 48 L 10/08/22 06:37: POC Glucose 62 L 10/08/22 12:19: POC Glucose 55 L Assessment & Plan Assessment/Plan (1) Choledocholithiasis: PLAN: Patient is a 31-year-old female who presented with abdominal pain secondary to choledocholithiasis without any complications. She underwent an elective cholecystectomy and elective ERCP for stent removal. Neuro: As needed Dilaudid, as needed Pulm/CV: No current issues FEN/GI: Daily laboratories, n.p.o. in anticipation of procedure, trend abdominal exam : No current issues Heme/ID: Trend CBC, empiric Zosyn coverage Endo: Bedside glucose checks, D5 infusion rate increased to 100 mL/h given persistent, asymptomatic hypoglycemia Proph: SCDs, patient encouraged Dispo: Continue inpatient care (2) Hypoglycemia: PLAN: ERCP with stent removal
[2022-12-29] MEDS: Lactated Ringers 1,000 ML 15 ML IV (14:07)
[2022-12-29 14:21] LABS: Internal QC Validated? YES +Cl - CLEAR BKGD; Pregnancy, Urine Negative Negative
--- NOTE | 2022-12-29 15:55 | RAD_ITS ---
CLINICAL HISTORY: Female, 32 years old. Biliary stent removal. PROCEDURE: ERCP FLUOROSCOPY TIME (if supplied): 55 seconds. Exposure of 9.13 mGy. TECHNIQUE: Fluoroscopic guidance was provided during the performance of an ERCP. 7 intraprocedural images were performed. Please refer to the operative report for further details. RAD/ERCP Biliary/Pancreas IMPRESSION: Fluoroscopy provided during an ERCP. Electronically Signed: Pavan Davenport DO at 23:51 EDT ,
--- NOTE | 2022-12-29 16:17 | OP.ERCP_ITS ---
Patient Name: Katherine Hayward Procedure Date: 12/29/2022 3:43 PM Date of : 1990 Age: 32 Procedure: ERCP Indications: Stent removal Providers: Narendra Mohamud DO Medicines: Monitored Anesthesia Care Patient Profile: This is a 32 year old female. Refer to note in patient chart for documentation of history and physical. Patient has symptoms. Complications: No immediate complications. Procedure: Pre-Anesthesia Assessment: - Prior to the procedure, a History and Physical was performed, and patient medications and allergies were reviewed. The patient is competent. The risks and benefits of the procedure and the sedation options and risks were discussed with the patient. All questions were answered and informed consent was obtained. Patient identification and proposed procedure were verified by the physician. Mental Status Examination: normal. Prophylactic Antibiotics: The patient does not require prophylactic antibiotics. Prior Anticoagulants: The patient has taken no previous anticoagulant or antiplatelet agents. After reviewing the risks and benefits, the patient was deemed in satisfactory condition to undergo the procedure. The anesthesia plan was to use monitored anesthesia care (MAC). Immediately prior to administration of medications, the patient was re-assessed for adequacy to receive sedatives. The heart rate, respiratory rate, oxygen saturations, blood pressure, adequacy of pulmonary ventilation, and response to care were monitored throughout the procedure. The physical status of the patient was re-assessed after the procedure. After obtaining informed consent, the scope was passed under direct vision. Throughout the procedure, the patient's blood pressure, pulse, and oxygen saturations were monitored continuously. The Duodenoscope was introduced through the mouth, and advanced to the duodenum and used to inject contrast into the bile duct. Scope In: 3:59:28 PM Scope Out: 4:07:46 PM Total Procedure Duration Time 0 hours 8 minutes 18 seconds Findings: The distribution warehouse manager film was normal. The esophagus was successfully intubated under direct vision. The scope was advanced to a normal major papilla in the descending duodenum without detailed examination of the pharynx, larynx and associated structures, and upper GI tract. The upper GI tract was grossly normal. The bile duct was deeply cannulated with the short-nosed traction sphincterotome. Contrast was injected. I personally interpreted the bile duct images. There was brisk flow of contrast through the ducts. Opacification of the entire biliary tree except for the cystic duct and gallbladder and lower third of the main bile duct was successful. The maximum diameter of the ducts was 10 mm. A straight Roadrunner wire was passed into the biliary tree. A 5 mm biliary sphincterotomy was made with a traction (standard) sphincterotome using ERBE electrocautery. The sphincterotomy oozed blood. The biliary tree was swept with a 12 mm balloon starting at the bifurcation. Sludge was swept from the duct. All stones were removed. One stent was removed from the biliary tree using a snare and sent for cultures. The stent was found to be partially occluded via the water column test. Impression: - Choledocholithiasis was found. Complete removal was accomplished by biliary sphincterotomy and balloon extraction. - A biliary sphincterotomy was performed. - The biliary tree was swept. - One stent was removed from the biliary tree. Procedure Code(s): --- Professional --- 45870, Endoscopic retrograde cholangiopancreatography (ERCP); with removal of foreign body(s) or stent(s) from biliary/pancreatic duct(s) 17275, Endoscopic retrograde cholangiopancreatography (ERCP); with removal of calculi/debris from biliary/pancreatic duct(s) 05572, Endoscopic retrograde cholangiopancreatography (ERCP); with sphincterotomy/papillotomy 28561, 26, Endoscopic catheterization of the biliary ductal system, radiological supervision and interpretation CPT copyright 2017 [employer]. All rights reserved. The codes documented in this report are preliminary and upon child care associate review may be revised to meet current compliance requirements. Narendra Mohamud DO 12/29/2022 4:16:30 PM This report has been signed electronically. Number of Addenda: 0 Note Initiated On: 12/29/2022 3:43 PM
--- NOTE | 2022-12-29 16:17 | OP.CCLET_ITS ---
12/29/2022 Conner Spaulding [address] [place] [address] Re : ERCP procedure for Katherine Hayward Dear Dr. Spaulding This procedure was performed on Thursday, December 29, 2022. My impressions and recommendations are as follows: Impressions : - Choledocholithiasis was found. Complete removal was accomplished by biliary sphincterotomy and balloon extraction. - A biliary sphincterotomy was performed. - The biliary tree was swept. - One stent was removed from the biliary tree. Recommendations : My findings are described in the full procedure note, which is enclosed. If I can be of further assistance, please feel free to contact me at . Sincerely, Narendra Mohamud, 12/29/2022 4:16:30 PM This report has been signed electronically.
== END 2022-12-29 17:33 | disposition home or self-care (01) ==
LOC: EN 13:36 → AC 13:37
PROVIDERS: Anesthesiology; PCP Family Medicine; Referring Provider Family Medicine; Visit Provider Internal Medicine Gastroenterology
PROC: (CPT 43260; principal; 2022-12-29 14:10)
DX: K80.50 Calculus of bile duct without cholangitis or cholecystitis without obstruction (principal); E16.2 Hypoglycemia, unspecified
CPT/HCPCS: 43275; 43264; 43262; 74330; 76000; 81025; 93005; J7120; J2405